=== PATIENT | female | born 1950 | race Caucasian/White ===

== ENCOUNTER 2022-01-08 02:29 | Emergency (ER) | payer MEDICARE, BC ==
[~2022-01-08] VITALS: Ht 170.2 cm; Wt 77.1 kg
--- NOTE | 2022-01-08 03:00 | NUR ---
Note ramiroria in EDM - 01/08/22 at 0321 by LUL BIBS C/O OF R HAND LACERATION. PT STATES HER KNEES BUCKLED WHILE HOLDING A GLASS OF WATER AND FELL FORWARD WITH THE GLASS IN HAND. PT AWAKE AND ALERT X4 BREATHING EVEN AND UNLABORED. PT DENIES ANY OTHER PAIN OR INJURIES -HT. PT+ ON ELIQUIS. UNKNOWN TDAP.
--- NOTE | 2022-01-08 03:04 | NUR ---
GEO. TO ER BED 10. AAOX4. NOT IN RESP DISTRESS. AMBULATORY. CAME IN FOR A PUNTURE WOUND ON HER R HAND. PT WAS WALKING WITH A GLASS, HER KNEE BUCKLED WHILE WALKING, FELL AND THE GLASS BROKE ON HER HAND. PT IS BLEEDING MODERATELY, PT REPORTS THAT SHE IN ON ELIQUIS. TETANUS NOT UP TO DATE. EMT AT BEDSIDE FOR WOUND CLEANING. MD WAS AT BEDSIDE WELL FOR EVAL.
[2022-01-08] MEDS ORDERED: TDAP [DIPH/PERTUSSIS/TET] 0.5 ML VIAL IM ONE ×2 (03:07→03:30)
--- NOTE | 2022-01-08 03:21 | NUR ---
XRAY AT BEDSIDE
--- NOTE | 2022-01-08 04:07 | NUR ---
followed up with [facility]
--- NOTE | 2022-01-08 04:46 | NUR ---
FOLLOWED UP WITH [facility] FOR IMAGING READ
--- NOTE | 2022-01-08 05:20 | NUR ---
WOUND DRESSING - NON ADHERENT DRESSING, GAUZE AND WRAPPED WITH KERLIX. PRESSURE DRESSING.
--- NOTE | 2022-01-08 05:27 | NUR ---
Patient discharged to home in stable condition. Written and verbal after care instructions given. Patient verbalizes understanding of instruction. Pt ambulatory with a steady gait
[2022-01-08 05:31] VITALS: BP 111/71
== END 2022-01-08 05:29 | disposition home or self-care (01) ==
LOC: ER 02:32
DX: S61.431A Puncture wound without foreign body of right hand, initial encounter (principal); I48.91 Unspecified atrial fibrillation; Z96.651 Presence of right artificial knee joint; W25.XXXA Contact with sharp glass, initial encounter; Y93.89 Activity, other specified; Y92.89 Other specified places as the place of occurrence of the external cause; Y99.8 Other external cause status
CPT/HCPCS: 73130; 90471; 90715; 99283; A6403